=== PATIENT | female | born 1995 | race African-American/Black ===

== ENCOUNTER 2023-01-10 08:31 | Emergency (ER) | payer OTHER, BC ==
[2023-01-10] MEDS ORDERED: Fluorescein Opthalmic Strip ONE (08:42)
[2023-01-10] MEDS ORDERED: Proparacaine 0.5% Opth 15 ML BOT ONE (08:59)
== END 2023-01-10 09:42 | disposition home or self-care (01) ==
LOC: ERS 08:31
DX: H57.13 Ocular pain, bilateral (principal); X58.XXXA Exposure to other specified factors, initial encounter
CPT/HCPCS: 99283